=== PATIENT | female | born 1950 | race Caucasian/White ===

== ENCOUNTER → 2017-07-31 | Outpatient (CLI) | payer OTHER, MEDICARE | LOC: BMCIMAGING 08:47 | PROVIDERS: ATTEND Internal Medicine | DX: I71.4 Abdominal aortic aneurysm, without rupture (principal) ==

== ENCOUNTER → 2017-10-09 | Outpatient (CLI) | payer OTHER, MEDICARE | LOC: FIMAGING 13:31 | PROVIDERS: ATTEND Internal Medicine | DX: Z12.31 Encounter for screening mammogram for malignant neoplasm of breast (principal) ==

== ENCOUNTER → 2017-12-19 | Outpatient (CLI) | payer OTHER, MEDICARE | LOC: FIMAGING 14:06 | PROVIDERS: ATTEND Nurse Practitioner | DX: S20.02XA Contusion of left breast, initial encounter (principal); Z85.3 Personal history of malignant neoplasm of breast ==

== ENCOUNTER → 2018-08-03 | Outpatient (CLI) | payer OTHER, MEDICARE | LOC: FIMAGING 13:14 | PROVIDERS: ATTEND Internal Medicine | DX: Z13.820 Encounter for screening for osteoporosis (principal); M85.89 Other specified disorders of bone density and structure, multiple sites; Z87.311 Personal history of (healed) other pathological fracture ==

== ENCOUNTER → 2018-10-19 | Outpatient (CLI) | payer OTHER, MEDICARE | LOC: FIMAGING 14:09 | PROVIDERS: ATTEND Internal Medicine | DX: Z12.31 Encounter for screening mammogram for malignant neoplasm of breast (principal); Z85.3 Personal history of malignant neoplasm of breast ==

== ENCOUNTER → 2019-03-25 | Outpatient (CLI) | payer OTHER, MEDICARE | LOC: BMCIMAGING 12:47 ==